=== PATIENT | female | born 1990 | race Caucasian/White ===

== ENCOUNTER → 2017-01-20 | Outpatient (CLI) | payer OTHER ==
[~2017-01-20] MED LIST: HYDR-3713 PO; LEVA750T PO
== END ==
LOC: M OUTALCOH 08:24
PROVIDERS: ATTEND Psychiatry & Neurology Psychiatry
DX: F11.20 Opioid dependence, uncomplicated (principal)

== ENCOUNTER 2017-02-21 11:48 | Emergency (ER) | payer MEDICAID, OTHER, SELFPAY ==
[~2017-02-21] VITALS: Ht 157.5 cm; Wt 83.9 kg
[2017-02-21] MEDS ORDERED: KETOROLAC 30 MG/ML VIAL (J1885) IV ONE (13:15)
[2017-02-21] MEDS ORDERED: ONDANSETRON 4MG/2ML VIAL (J2405) IV ONE (13:15)
[2017-02-21 13:27] LABS: BASO % 0.4 % (0.0-1.0); EOS # 0.1 K/mm3 (0.0-0.50); EOS % 1.2 % (0.0-3.0); LARGE UNSTAINED CELL # 0.1 K/mm3 (0.0-0.4); LARGE UNSTAINED CELL % 1.2 % (0.0-4.0); LYMPH # 1.9 K/mm3 (1.5-6.5); LYMPH % 25.4 % (24.0-44.0); MEAN CORPUSCULAR HEMOGLOBIN 29.6 pg (27.0-33.0); MEAN CORPUSCULAR HGB CONC 32.8 g/dl (32.0-36.5); MEAN CORPUSCULAR VOLUME 90.2 fl (80.0-96.0); MONO # 0.4 K/mm3 (0.0-0.8); MONO % 5.6 % (0.0-5.0); NEUTROPHILS # 4.7 K/mm3 (1.8-7.7); NEUTROPHILS % 66.2 % (36.0-66.0); PLATELET COUNT, AUTOMATED 239 k/mm3 (150-450); RED CELL DISTRIBUTION WIDTH 13.2 % (11.5-14.5); WHITE BLOOD COUNT 7.1 K/mm3 (4.0-10.0)
[2017-02-21 13:54] LABS: ALBUMIN 4.2 GM/DL (3.2-5.2); ALBUMIN/GLOBULIN RATIO 1.24 (1.00-1.93); ALKALINE PHOSPHATASE 56 U/L (45-117); ALT/SGPT 21 U/L (12-78); ANION GAP 3 MEQ/L (8-16); AST/SGOT 25 U/L (15-37); BILIRUBIN,DIRECT 0.1 MG/DL (0.0-0.2); BILIRUBIN,TOTAL 0.5 MG/DL (0.2-1.0); BLOOD UREA NITROGEN 14 MG/DL (7-18); CALCIUM LEVEL 9.4 MG/DL (8.5-10.1); CARBON DIOXIDE LEVEL 31 MEQ/L (21-32); CHLORIDE LEVEL 103 MEQ/L (98-107); CREATININE FOR GFR 0.77 MG/DL (0.55-1.02); GLOMERULAR FILTRATION RATE > 60.0 (>60); GLUCOSE, FASTING 81 MG/DL (70-105); POTASSIUM SERUM 4.1 MEQ/L (3.5-5.1); SODIUM LEVEL 137 MEQ/L (136-145); TOTAL PROTEIN 7.6 GM/DL (6.4-8.2)
--- NOTE | 2017-02-21 14:22 | REP ---
CT ABDOMEN AND PELVIS WITHOUT CONTRAST: CT abdomen and pelvis is performed without oral or IV contrast, with sagittal and coronal reconstruction images. The visualized lung bases demonstrate no infiltrate. The liver, spleen, adrenals, pancreas and kidneys are essentially unremarkable. There is no hydronephrosis. Small gallstones are seen in the gallbladder, which does not appear to be inflamed. There is no abdominal aortic aneurysm. There is no adenopathy. There is no free air. No bowel wall thickening is seen. The appendix is normal. There is no definite pelvic mass. There is mild free fluid in the pelvis, which may be physiologic in nature. No anterior abdominal defect is seen. IMPRESSION: Mild free fluid in the pelvis may be physiologic in nature. No free air. Small gallstones are seen in the gallbladder which does not appear to be inflamed. No renal or ureteral calculus and no hydroureteronephrosis. No evidence of appendicitis. Signed by Kameron Cagle MD 02/21/2017 03:56 P
[2017-02-21] MEDS ORDERED: ZOFR20TA PO (14:41)
[2017-02-21] MEDS ORDERED: NAPR500T PO (14:41)
[2017-02-21 14:58] VITALS: BP 123/64
== END 2017-02-21 15:05 | disposition home or self-care (01) ==
LOC: M ED 13:26
DX: K52.9 Noninfective gastroenteritis and colitis, unspecified (principal)
CPT/HCPCS: 74176; 80048; 80076; 81001; 83690; 85025; 87086; 96374; 96375; 99282; J1885; J2405

== ENCOUNTER 2017-04-11 08:14 | Outpatient (RCR) | payer MEDICAID ==
[~2017-04-11 08:14] MED LIST changes: +NAPR500T PO; +ZOFR20TA PO
== END 2017-04-20 ==
LOC: M OUTALCOH 08:14
PROVIDERS: ATTEND Psychiatry & Neurology Psychiatry
DX: F11.20 Opioid dependence, uncomplicated (principal); F10.20 Alcohol dependence, uncomplicated; F13.10 Sedative, hypnotic or anxiolytic abuse, uncomplicated

== ENCOUNTER → 2017-05-30 | Outpatient (CLI) | payer MEDICAID ==
[~2017-05-30] MED LIST changes: +ACAM0.05; +GABA-282; +IBUP-1022 PO; -LEVA750T PO; +LEVA750T7 PO; +LITH1TAB; +MAGN400T2; +PARO30TA PO; +PRAM0.252 PO; +PRAZ1CAP; +VIVI380I IM; +[UNRECOGNIZED DRUG - CODE]
== END ==
LOC: M OUTALCOH 12:46
PROVIDERS: ATTEND Psychiatry & Neurology Psychiatry
DX: F11.20 Opioid dependence, uncomplicated (principal); F10.20 Alcohol dependence, uncomplicated; F13.10 Sedative, hypnotic or anxiolytic abuse, uncomplicated

== ENCOUNTER 2017-06-14 09:00 | Outpatient (RCR) | payer MEDICAID ==
[~2017-06-14 09:00] MED LIST changes: -ACAM0.05; -GABA-282; -IBUP-1022 PO; -LITH1TAB; -MAGN400T2; -PARO30TA PO; -PRAM0.252 PO; -PRAZ1CAP; -VIVI380I IM; -[UNRECOGNIZED DRUG - CODE]
[2017-06-20] MEDS ORDERED: LITH1TAB (23:15)
[2017-06-20] MEDS ORDERED: GABA-282 (23:15)
[2017-06-20] MEDS ORDERED: PRAZ1CAP (23:15)
[2017-06-20] MEDS ORDERED: [UNRECOGNIZED DRUG - CODE] (23:15)
[2017-06-20] MEDS ORDERED: MAGN400T2 (23:15)
[2017-06-20] MEDS ORDERED: ACAM0.05 (23:15)
[2017-06-20] MEDS ORDERED: PRAM0.252 PO (23:19)
[2017-06-20] MEDS ORDERED: PARO30TA PO (23:19)
[2017-06-20] MEDS ORDERED: VIVI380I IM (23:29)
== END 2017-06-20 ==
LOC: M OUTALCOH 09:00
PROVIDERS: ATTEND Psychiatry & Neurology Psychiatry
DX: F10.20 Alcohol dependence, uncomplicated (principal); F11.20 Opioid dependence, uncomplicated; F13.10 Sedative, hypnotic or anxiolytic abuse, uncomplicated; F17.210 Nicotine dependence, cigarettes, uncomplicated

== ENCOUNTER 2017-06-20 22:51 | Emergency (ER) | payer MEDICAID, OTHER ==
[~2017-06-20] VITALS: Ht 167.6 cm; Wt 73.0 kg
[2017-06-20] MEDS ORDERED: ACAM0.05 (23:15)
[2017-06-20] MEDS ORDERED: LITH1TAB (23:15)
[2017-06-20] MEDS ORDERED: MAGN400T2 (23:15)
[2017-06-20] MEDS ORDERED: PRAZ1CAP (23:15)
[2017-06-20] MEDS ORDERED: GABA-282 (23:15)
[2017-06-20] MEDS ORDERED: [UNRECOGNIZED DRUG - CODE] (23:15)
[2017-06-20] MEDS ORDERED: PRAM0.252 PO (23:19)
[2017-06-20] MEDS ORDERED: PARO30TA PO (23:19)
[2017-06-20] MEDS ORDERED: VIVI380I IM (23:29)
[2017-06-21 00:28] LABS: METHADONE URINE NEGATIVE (NEGATIVE)
[2017-06-21 00:30] LABS: ANION GAP 5 MEQ/L (8-16); BLOOD UREA NITROGEN 6 MG/DL (7-18); CALCIUM LEVEL 8.3 MG/DL (8.5-10.1); CARBON DIOXIDE LEVEL 29 MEQ/L (21-32); CHLORIDE LEVEL 109 MEQ/L (98-107); CREATININE FOR GFR 0.97 MG/DL (0.55-1.02); GLOMERULAR FILTRATION RATE > 60.0 (>60); GLUCOSE, FASTING 104 MG/DL (70-105); POTASSIUM SERUM 3.1 MEQ/L (3.5-5.1); SODIUM LEVEL 143 MEQ/L (136-145)
[2017-06-21 01:56] VITALS: BP 107/55
== END 2017-06-21 02:02 | disposition home or self-care (01) ==
LOC: M ED 22:51 → EDBD 22:51 → M ED 06-21 02:02
DX: F10.129 Alcohol abuse with intoxication, unspecified (principal)

== ENCOUNTER 2017-07-11 11:27 | Emergency (ER) | payer MEDICAID ==
[2017-07-11 11:27] VITALS: BP 129/67
[~2017-07-11 11:27] MED LIST changes: +ACAM0.05; +GABA-282; +LITH1TAB; +MAGN400T2; +PARO30TA PO; +PRAM0.252 PO; +PRAZ1CAP; +VIVI380I IM; +[UNRECOGNIZED DRUG - CODE]
[2017-07-11] MEDS ORDERED: IBUP-1022 PO (11:43)
== END 2017-07-11 13:03 | disposition left against medical advice (07) ==
LOC: M ED 11:27
DX: K08.89 Other specified disorders of teeth and supporting structures (principal); Z53.29 Procedure and treatment not carried out because of patient's decision for other reasons

== ENCOUNTER 2017-07-14 14:00 | Outpatient (RCR) | payer MEDICAID ==
[~2017-07-14 14:00] MED LIST changes: +IBUP-1022 PO
== END 2017-07-21 ==
LOC: M OUTALCOH 14:00
PROVIDERS: ATTEND Psychiatry & Neurology Psychiatry
DX: F11.20 Opioid dependence, uncomplicated (principal); F10.20 Alcohol dependence, uncomplicated; F13.10 Sedative, hypnotic or anxiolytic abuse, uncomplicated; F17.201 Nicotine dependence, unspecified, in remission

== ENCOUNTER 2018-02-18 09:09 | Emergency (ER) | payer OTHER, MEDICAID ==
[2018-02-18 09:45] LABS: KETONE, URINE AUTO RFX NEGATIVE (NEGATIVE); LEUKOCYTE ESTERASE UR AUTO RFX NEGATIVE (NEGATIVE); NITRITE, URINE AUTO RFX NEGATIVE (NEGATIVE); RBC, URINE AUTO RFX 0 /HPF (0-3); SPECIFIC GRAVITY UR AUTO RFX 1.012 (1.002-1.035); SQUAM EPITHELIAL CELL UR AURFX 1 /HPF (0-6); WBC, URINE AUTO RFX 1 /HPF (0-3)
[2018-02-18] MEDS: NS 1,000 ML IV (10:32)
[2018-02-18] MEDS: ONDANSETRON 4MG/2ML VIAL (J2405) IV (10:32)
[2018-02-18] MEDS: MORPHINE 4 MG/ML 1ML VIAL (J2270) IV ×2 (10:33→11:12)
[2018-02-18 10:51] LABS: BASO % 0.6 % (0.0-1.0); EOS # 0.1 10^3/uL (0.0-0.50); HEMATOCRIT 41.4 % (36.0-47.0); HEMOGLOBIN 13.8 g/dl (12.0-15.5); IMMATURE GRANULOCYTE % 0.2 % (0-3.0); LYMPH # 1.5 10^3/uL (1.5-6.5); LYMPH % 23.4 % (24.0-44.0); MEAN CORPUSCULAR HEMOGLOBIN 28.5 pg (27.0-33.0); MEAN CORPUSCULAR HGB CONC 33.3 g/dl (32.0-36.5); MEAN CORPUSCULAR VOLUME 85.5 fl (80.0-96.0); MONO # 0.7 10^3/uL (0.0-0.8); MONO % 11.5 % (0.0-5.0); NEUTROPHILS % 63.3 % (36.0-66.0); PLATELET COUNT, AUTOMATED 240 10^3/uL (150-450); RED BLOOD COUNT 4.84 10^6/uL (4.00-5.40); RED CELL DISTRIBUTION WIDTH 13.2 % (11.5-14.5); WHITE BLOOD COUNT 6.2 10^3/uL (4.0-10.0)
[2018-02-18 10:58] LABS: CONTROL LINE HCG INT CTR LINE PRESENT; HCG, SERUM QUALITATIVE NEGATIVE (NEGATIVE)
[2018-02-18 11:06] LABS: ALBUMIN 4.1 GM/DL (3.2-5.2); ALBUMIN/GLOBULIN RATIO 1.03 (1.00-1.93); ALKALINE PHOSPHATASE 53 U/L (45-117); ALT/SGPT 24 U/L (12-78); ANION GAP 5 MEQ/L (8-16); AST/SGOT 27 U/L (7-37); BILIRUBIN,DIRECT < 0.1 MG/DL (0.0-0.2); BILIRUBIN,TOTAL 0.3 MG/DL (0.2-1.0); BLOOD UREA NITROGEN 12 MG/DL (7-18); CARBON DIOXIDE LEVEL 27 MEQ/L (21-32); CHLORIDE LEVEL 107 MEQ/L (98-107); CREATININE FOR GFR 0.69 MG/DL (0.55-1.30); GLOMERULAR FILTRATION RATE > 60.0 (>60); GLUCOSE, FASTING 87 MG/DL (70-100); LIPASE 176 U/L (73-393); POTASSIUM SERUM 4.2 MEQ/L (3.5-5.1); SODIUM LEVEL 139 MEQ/L (136-145); TOTAL PROTEIN 8.1 GM/DL (6.4-8.2)
[2018-02-18] MEDS ORDERED: ISOVUE-370 76% 100ML VIAL (Q9967) As Ordered (12:39)
[2018-02-18] MEDS: HYDROmorphone HCL 1 MG/ML SYRINGE (J1170) IV (13:08)
[2018-02-18 14:06] LABS: CHLAMYDIA DNA AMPLIFICATION NEGATIVE (NEGATIVE); GC DNA AMPLIFICATION NEGATIVE (NEGATIVE)
== END 2018-02-18 14:18 | disposition home or self-care (01) ==
LOC: M ED 09:09
DX: N83.201 Unspecified ovarian cyst, right side (principal); N75.0 Cyst of Bartholin's gland; F41.9 Anxiety disorder, unspecified; F17.210 Nicotine dependence, cigarettes, uncomplicated
CPT/HCPCS: J1170

== ENCOUNTER 2018-03-11 20:15 | Emergency (ER) | payer SELFPAY, OTHER ==
[2018-03-11] MEDS: LIDOCAINE 1% MDV 20ML VIAL SC (21:30)
[2018-03-11] MEDS: ADACEL/BOOSTRIX VACCINE (DIPHTH/PERTUSS/ACELL/TETANUS)0.5ML SYR (90715) IM (21:37)
[2018-03-11] MEDS: AUGMENTIN 875 MG TAB PO (23:00)
== END 2018-03-11 23:14 | disposition home or self-care (01) ==
LOC: M ED 20:15
DX: S00.83XA Contusion of other part of head, initial encounter (principal); S01.511A Laceration without foreign body of lip, initial encounter; W19.XXXA Unspecified fall, initial encounter; Y92.099 Unspecified place in other non-institutional residence as the place of occurrence of the external cause; Y93.9 Activity, unspecified; Y99.9 Unspecified external cause status; F17.200 Nicotine dependence, unspecified, uncomplicated
CPT/HCPCS: 90715

== ENCOUNTER 2018-05-04 16:56 | Inpatient (IN) | payer SELFPAY ==
[2018-05-04] MEDS ORDERED: GASTROGRAFIN SOLUTION 30ML (Q9963) As Ordered (17:49)
[2018-05-04] MEDS: GASTROGRAFIN SOLUTION 30ML PO ×2 (17:50→18:20)
[2018-05-04] MEDS: NS 1,000 ML IV (17:55)
[2018-05-04 18:08] LABS: BASO # 0.1 10^3/uL (0.0-0.2); BASO % 0.8 % (0.0-1.0); EOS # 0.1 10^3/uL (0.0-0.50); EOS % 2.1 % (0.0-3.0); HEMATOCRIT 39.6 % (36.0-47.0); HEMOGLOBIN 12.8 g/dl (12.0-15.5); IMMATURE GRANULOCYTE % 0.3 % (0-3.0); LYMPH # 1.8 10^3/uL (1.5-6.5); LYMPH % 27.1 % (24.0-44.0); MEAN CORPUSCULAR HEMOGLOBIN 28.8 pg (27.0-33.0); MEAN CORPUSCULAR HGB CONC 32.3 g/dl (32.0-36.5); MEAN CORPUSCULAR VOLUME 89.2 fl (80.0-96.0); MONO # 0.8 10^3/uL (0.0-0.8); MONO % 11.6 % (0.0-5.0); NEUTROPHILS # 3.8 10^3/uL (1.8-7.7); NEUTROPHILS % 58.1 % (36.0-66.0); PLATELET COUNT, AUTOMATED 195 10^3/uL (150-450); RED BLOOD COUNT 4.44 10^6/uL (4.00-5.40); RED CELL DISTRIBUTION WIDTH 14.6 % (11.5-14.5); WHITE BLOOD COUNT 6.6 10^3/uL (4.0-10.0)
[2018-05-04 18:15] LABS: AMORPHOUS SEDIMENT RFX SMALL (NEGATIVE); CALCIUM OXALATE CRYSTALS RFX SMALL; KETONE, URINE AUTO RFX NEGATIVE (NEGATIVE); MUCUS, URINE RFX SMALL (NEGATIVE); NITRITE, URINE AUTO RFX NEGATIVE (NEGATIVE); RBC, URINE AUTO RFX 3 /HPF (0-3); SPECIFIC GRAVITY UR AUTO RFX 1.029 (1.002-1.035); SQUAM EPITHELIAL CELL UR AURFX 29 /HPF (0-6); WBC, URINE AUTO RFX 3 /HPF (0-3)
[2018-05-04 18:16] LABS: LEUKOCYTE ESTERASE UR AUTO RFX 1+ (NEGATIVE)
[2018-05-04 18:31] LABS: AMMONIA 51 uMOL/L (<32)
[2018-05-04 18:35] LABS: LACTIC ACID SEPSIS PROTOCOL 0.9 MMOL/L (0.4-2.0)
[2018-05-04 18:50] LABS: ALBUMIN 3.2 GM/DL (3.2-5.2); ALKALINE PHOSPHATASE 248 U/L (45-117); ALT/SGPT 1643 U/L (12-78); AMYLASE 77 U/L (25-115); ANION GAP 6 MEQ/L (8-16); AST/SGOT 1650 U/L (7-37); BILIRUBIN,DIRECT 6.5 MG/DL (0.0-0.2); BILIRUBIN,TOTAL 8.1 MG/DL (0.2-1.0); BLOOD UREA NITROGEN 7 MG/DL (7-18); CALCIUM LEVEL 8.5 MG/DL (8.5-10.1); CARBON DIOXIDE LEVEL 30 MEQ/L (21-32); CHLORIDE LEVEL 105 MEQ/L (98-107); CREATININE FOR GFR 0.86 MG/DL (0.55-1.30); GAMMA GLUTAMYLTRANSPEPTIDASE 635 U/L (5-55); GLOMERULAR FILTRATION RATE > 60.0 (>60); GLUCOSE, FASTING 85 MG/DL (70-100); LIPASE 190 U/L (73-393); POTASSIUM SERUM 3.8 MEQ/L (3.5-5.1); SODIUM LEVEL 141 MEQ/L (136-145); TOTAL PROTEIN 6.4 GM/DL (6.4-8.2)
[2018-05-04] MEDS ORDERED: ISOVUE-370 76% 100ML VIAL (Q9967) As Ordered (18:57)
[2018-05-04] MEDS: KETOROLAC 30 MG/ML VIAL (J1885) IV (19:00)
[2018-05-04 21:04] LABS: ETHYL ALCOHOL (ETHANOL) 0.009 % (0.000-0.010)
[2018-05-04 21:24] LABS: ACETAMINOPHEN LEVEL < 2.0 UG/ML (10.0-30.0); SALICYLATE LEVEL < 1.7 MG/DL (5.0-30.0)
[2018-05-04] MEDS: traMADol 50 MG TAB PO (21:38)
[2018-05-04] MEDS: D5W/0.9% SODIUM CHLORIDE 1,000 ML IV (22:23)
[2018-05-04] MEDS ORDERED: ACETAMINOPHEN TAB 650MG DOSE (2X325MG) PO (22:30)
[2018-05-04] MEDS: ONDANSETRON 4MG/2ML VIAL (J2405) IV (22:45)
[2018-05-04] MEDS: NICOTINE 14 MG/24 HR TRANSDERMAL TD (22:45)
[2018-05-04] MEDS: PERCOCET 5MG/325MG TAB PO (22:46)
[2018-05-05] MEDS: PERCOCET 5MG/325MG TAB PO (05:00)
[2018-05-05] MEDS: MORPHINE 4 MG/ML 1ML VIAL/SYRINGE (J2270) IV ×3 (07:42→18:11)
[2018-05-05] MEDS: D5W/0.9% SODIUM CHLORIDE 1,000 ML IV ×2 (07:42→21:23)
[2018-05-05] MEDS: ONDANSETRON 4MG/2ML VIAL (J2405) IV ×3 (08:10→21:24)
[2018-05-05 08:34] LABS: BASO % 0.9 % (0.0-1.0); EOS # 0.2 10^3/uL (0.0-0.50); EOS % 4.2 % (0.0-3.0); HEMATOCRIT 38.2 % (36.0-47.0); HEMOGLOBIN 12.3 g/dl (12.0-15.5); IMMATURE GRANULOCYTE % 0.2 % (0-3.0); LYMPH # 1.5 10^3/uL (1.5-6.5); LYMPH % 34.2 % (24.0-44.0); MEAN CORPUSCULAR HEMOGLOBIN 29.1 pg (27.0-33.0); MEAN CORPUSCULAR HGB CONC 32.2 g/dl (32.0-36.5); MEAN CORPUSCULAR VOLUME 90.3 fl (80.0-96.0); MONO # 0.4 10^3/uL (0.0-0.8); MONO % 9.2 % (0.0-5.0); NEUTROPHILS # 2.2 10^3/uL (1.8-7.7); NEUTROPHILS % 51.3 % (36.0-66.0); PLATELET COUNT, AUTOMATED 174 10^3/uL (150-450); RED BLOOD COUNT 4.23 10^6/uL (4.00-5.40); RED CELL DISTRIBUTION WIDTH 14.7 % (11.5-14.5); WHITE BLOOD COUNT 4.3 10^3/uL (4.0-10.0)
[2018-05-05 08:44] LABS: INR 1.07; PROTHROMBIN TIME 14.1 SECONDS (12.4-14.5)
[2018-05-05 09:09] LABS: ALBUMIN 2.8 GM/DL (3.2-5.2); ALBUMIN/GLOBULIN RATIO 1.04 (1.00-1.93); ALKALINE PHOSPHATASE 221 U/L (45-117); ALT/SGPT 1367 U/L (12-78); ANION GAP 8 MEQ/L (8-16); AST/SGOT 1374 U/L (7-37); BILIRUBIN,TOTAL 9.6 MG/DL (0.2-1.0); BLOOD UREA NITROGEN 5 MG/DL (7-18); CARBON DIOXIDE LEVEL 27 MEQ/L (21-32); CHLORIDE LEVEL 109 MEQ/L (98-107); CREATININE FOR GFR 0.81 MG/DL (0.55-1.30); GLOMERULAR FILTRATION RATE > 60.0 (>60); GLUCOSE, FASTING 98 MG/DL (70-100); POTASSIUM SERUM 3.9 MEQ/L (3.5-5.1); SODIUM LEVEL 144 MEQ/L (136-145); TOTAL PROTEIN 5.5 GM/DL (6.4-8.2)
[2018-05-05] MEDS: NICOTINE 14 MG/24 HR TRANSDERMAL TD (11:10)
[2018-05-05 11:47] LABS: HIV 1&2 SCREEN CENTAUR NEGATIVE (NEGATIVE)
[2018-05-05 13:35] LABS: HEPATITIS B SURFACE ANTIGEN NEGATIVE (NEGATIVE)
[2018-05-05 14:03] LABS: HEPATITIS B CORE ANTIBODY IGM NEGATIVE (NEGATIVE)
[2018-05-05 14:05] LABS: HEPATITIS A ANTIBODY IGM NEGATIVE (NEGATIVE)
[2018-05-05] MEDS: KETOROLAC 30 MG/ML VIAL (J1885) IV ×2 (14:07→21:24)
[2018-05-05 14:17] LABS: HEPATITIS C VIRUS ABY INDEX 10.2 INDEX (<0.8)
[2018-05-06] MEDS: KETOROLAC 30 MG/ML VIAL (J1885) IV (05:40)
[2018-05-06] MEDS: ONDANSETRON 4MG/2ML VIAL (J2405) IV ×3 (05:40→19:41)
[2018-05-06] MEDS: D5W/0.9% SODIUM CHLORIDE 1,000 ML IV (05:41)
[2018-05-06 08:43] LABS: BASO % 0.9 % (0.0-1.0); EOS # 0.2 10^3/uL (0.0-0.50); EOS % 3.4 % (0.0-3.0); HEMATOCRIT 35.6 % (36.0-47.0); HEMOGLOBIN 11.5 g/dl (12.0-15.5); IMMATURE GRANULOCYTE % 0.2 % (0-3.0); LYMPH # 1.1 10^3/uL (1.5-6.5); LYMPH % 25.5 % (24.0-44.0); MEAN CORPUSCULAR HGB CONC 32.3 g/dl (32.0-36.5); MEAN CORPUSCULAR VOLUME 89.7 fl (80.0-96.0); MONO # 0.4 10^3/uL (0.0-0.8); MONO % 8.7 % (0.0-5.0); NEUTROPHILS # 2.7 10^3/uL (1.8-7.7); NEUTROPHILS % 61.3 % (36.0-66.0); PLATELET COUNT, AUTOMATED 140 10^3/uL (150-450); RED BLOOD COUNT 3.97 10^6/uL (4.00-5.40); RED CELL DISTRIBUTION WIDTH 14.8 % (11.5-14.5); WHITE BLOOD COUNT 4.4 10^3/uL (4.0-10.0)
[2018-05-06] MEDS: NICOTINE 14 MG/24 HR TRANSDERMAL TD (08:49)
[2018-05-06] MEDS: MORPHINE 4 MG/ML 1ML VIAL/SYRINGE (J2270) IV ×5 (08:49→23:59)
[2018-05-06 09:23] LABS: ALBUMIN 2.5 GM/DL (3.2-5.2); ALBUMIN/GLOBULIN RATIO 1.09 (1.00-1.93); ALKALINE PHOSPHATASE 183 U/L (45-117); ALT/SGPT 1096 U/L (12-78); ANION GAP 7 MEQ/L (8-16); AST/SGOT 1152 U/L (7-37); BILIRUBIN,TOTAL 10.6 MG/DL (0.2-1.0); BLOOD UREA NITROGEN 5 MG/DL (7-18); CARBON DIOXIDE LEVEL 28 MEQ/L (21-32); CHLORIDE LEVEL 111 MEQ/L (98-107); CREATININE FOR GFR 0.79 MG/DL (0.55-1.30); GLOMERULAR FILTRATION RATE > 60.0 (>60); GLUCOSE, FASTING 105 MG/DL (70-100); POTASSIUM SERUM 4.1 MEQ/L (3.5-5.1); SODIUM LEVEL 146 MEQ/L (136-145); TOTAL PROTEIN 4.8 GM/DL (6.4-8.2)
[2018-05-06] MEDS: THIAMINE 100 MG TAB PO (17:11)
[2018-05-06] MEDS: FOLIC ACID 1 MG TAB PO (17:11)
[2018-05-07 00:06] LABS: ANTI-SMOOTH MUSCLE ANTIBODY 4 Units (0-19)
[2018-05-07] MEDS: KETOROLAC 30 MG/ML VIAL (J1885) IV (00:10)
[2018-05-07] MEDS: MORPHINE 4 MG/ML 1ML VIAL/SYRINGE (J2270) IV ×4 (05:56→22:01)
[2018-05-07] MEDS: ONDANSETRON 4MG/2ML VIAL (J2405) IV ×3 (05:56→17:56)
[2018-05-07 06:13] LABS: BASO % 0.9 % (0.0-1.0); EOS # 0.1 10^3/uL (0.0-0.50); EOS % 2.5 % (0.0-3.0); HEMATOCRIT 35.4 % (36.0-47.0); HEMOGLOBIN 11.6 g/dl (12.0-15.5); IMMATURE GRANULOCYTE % 0.2 % (0-3.0); LYMPH # 1.4 10^3/uL (1.5-6.5); LYMPH % 31.4 % (24.0-44.0); MEAN CORPUSCULAR HEMOGLOBIN 28.9 pg (27.0-33.0); MEAN CORPUSCULAR HGB CONC 32.8 g/dl (32.0-36.5); MEAN CORPUSCULAR VOLUME 88.3 fl (80.0-96.0); MONO # 0.3 10^3/uL (0.0-0.8); MONO % 7.6 % (0.0-5.0); NEUTROPHILS # 2.6 10^3/uL (1.8-7.7); NEUTROPHILS % 57.4 % (36.0-66.0); PLATELET COUNT, AUTOMATED 159 10^3/uL (150-450); RED BLOOD COUNT 4.01 10^6/uL (4.00-5.40); RED CELL DISTRIBUTION WIDTH 14.8 % (11.5-14.5); WHITE BLOOD COUNT 4.5 10^3/uL (4.0-10.0)
[2018-05-07 07:00] LABS: ALBUMIN 2.5 GM/DL (3.2-5.2); ALBUMIN/GLOBULIN RATIO 0.96 (1.00-1.93); ALKALINE PHOSPHATASE 192 U/L (45-117); ALT/SGPT 1050 U/L (12-78); ANION GAP 8 MEQ/L (8-16); AST/SGOT 1218 U/L (7-37); BILIRUBIN,TOTAL 12.3 MG/DL (0.2-1.0); BLOOD UREA NITROGEN 5 MG/DL (7-18); CALCIUM LEVEL 8.4 MG/DL (8.5-10.1); CARBON DIOXIDE LEVEL 29 MEQ/L (21-32); CHLORIDE LEVEL 108 MEQ/L (98-107); GLOMERULAR FILTRATION RATE > 60.0 (>60); GLUCOSE, FASTING 84 MG/DL (70-100); POTASSIUM SERUM 3.8 MEQ/L (3.5-5.1); SODIUM LEVEL 145 MEQ/L (136-145); TOTAL PROTEIN 5.1 GM/DL (6.4-8.2)
[2018-05-07 07:19] LABS: INR 1.14; PROTHROMBIN TIME 14.8 SECONDS (12.4-14.5)
[2018-05-07] MEDS: THIAMINE 100 MG TAB PO (08:33)
[2018-05-07] MEDS: FOLIC ACID 1 MG TAB PO (08:33)
[2018-05-07] MEDS: NICOTINE 14 MG/24 HR TRANSDERMAL TD (08:33)
[2018-05-08] MEDS: ONDANSETRON 4MG/2ML VIAL (J2405) IV (00:05)
[2018-05-08 06:55] LABS: CONTROL LINE MONO EB INT CTR LINE PRESENT; MONO REFLEX EBV VCA IgM NEGATIVE (NEGATIVE)
[2018-05-08 07:17] LABS: BASO % 0.8 % (0.0-1.0); EOS # 0.2 10^3/uL (0.0-0.50); EOS % 3.2 % (0.0-3.0); HEMATOCRIT 35.4 % (36.0-47.0); HEMOGLOBIN 11.7 g/dl (12.0-15.5); IMMATURE GRANULOCYTE % 0.4 % (0-3.0); LYMPH # 1.4 10^3/uL (1.5-6.5); LYMPH % 28.3 % (24.0-44.0); MEAN CORPUSCULAR HEMOGLOBIN 28.7 pg (27.0-33.0); MEAN CORPUSCULAR HGB CONC 33.1 g/dl (32.0-36.5); MONO # 0.6 10^3/uL (0.0-0.8); MONO % 11.2 % (0.0-5.0); NEUTROPHILS # 2.8 10^3/uL (1.8-7.7); NEUTROPHILS % 56.1 % (36.0-66.0); PLATELET COUNT, AUTOMATED 176 10^3/uL (150-450); RED BLOOD COUNT 4.07 10^6/uL (4.00-5.40)
[2018-05-08 07:42] LABS: ALBUMIN 2.6 GM/DL (3.2-5.2); ALBUMIN/GLOBULIN RATIO 0.87 (1.00-1.93); ALKALINE PHOSPHATASE 187 U/L (45-117); ALT/SGPT 984 U/L (12-78); ANION GAP 7 MEQ/L (8-16); AST/SGOT 1257 U/L (7-37); BILIRUBIN,TOTAL 13.3 MG/DL (0.2-1.0); BLOOD UREA NITROGEN 5 MG/DL (7-18); CALCIUM LEVEL 8.6 MG/DL (8.5-10.1); CARBON DIOXIDE LEVEL 29 MEQ/L (21-32); CHLORIDE LEVEL 106 MEQ/L (98-107); CREATININE FOR GFR 0.87 MG/DL (0.55-1.30); GLOMERULAR FILTRATION RATE > 60.0 (>60); GLUCOSE, FASTING 85 MG/DL (70-100); POTASSIUM SERUM 3.7 MEQ/L (3.5-5.1); SODIUM LEVEL 142 MEQ/L (136-145); TOTAL PROTEIN 5.6 GM/DL (6.4-8.2)
[2018-05-08] MEDS: LACTULOSE 20 GM/30 ML SYRUP UD PO ×3 (08:58→20:44)
[2018-05-08] MEDS: MORPHINE 4 MG/ML 1ML VIAL/SYRINGE (J2270) IV (08:58)
[2018-05-08] MEDS: NICOTINE 14 MG/24 HR TRANSDERMAL TD (08:59)
[2018-05-08] MEDS: FOLIC ACID 1 MG TAB PO (08:59)
[2018-05-08] MEDS: THIAMINE 100 MG TAB PO (08:59)
[2018-05-08] MEDS: MULTIVITAMINS/MINERALS THERAP 1 TAB PO (08:59)
[2018-05-08] MEDS: IBUPROFEN 400 MG TAB PO ×2 (14:05→20:43)
[2018-05-08 14:29] LABS: HCV RNA NAA QUALITATIVE Positive (Negative)
[2018-05-08] MEDS: oxyCODONE 5MG TAB PO (20:54)
[2018-05-08] MEDS: ONDANSETRON 4 MG TAB (S0181) PO (20:54)
[2018-05-09 06:43] LABS: BASO # 0.1 10^3/uL (0.0-0.2); EOS # 0.2 10^3/uL (0.0-0.50); EOS % 3.5 % (0.0-3.0); HEMATOCRIT 34.7 % (36.0-47.0); HEMOGLOBIN 11.6 g/dl (12.0-15.5); IMMATURE GRANULOCYTE % 0.4 % (0-3.0); LYMPH # 1.8 10^3/uL (1.5-6.5); MEAN CORPUSCULAR HEMOGLOBIN 28.9 pg (27.0-33.0); MEAN CORPUSCULAR HGB CONC 33.4 g/dl (32.0-36.5); MEAN CORPUSCULAR VOLUME 86.5 fl (80.0-96.0); MONO # 0.6 10^3/uL (0.0-0.8); MONO % 12.4 % (0.0-5.0); NEUTROPHILS # 2.3 10^3/uL (1.8-7.7); NEUTROPHILS % 45.7 % (36.0-66.0); PLATELET COUNT, AUTOMATED 178 10^3/uL (150-450); RED BLOOD COUNT 4.01 10^6/uL (4.00-5.40); RED CELL DISTRIBUTION WIDTH 15.5 % (11.5-14.5); WHITE BLOOD COUNT 4.9 10^3/uL (4.0-10.0)
[2018-05-09 06:53] LABS: INR 1.07
[2018-05-09 07:18] LABS: ALBUMIN 2.5 GM/DL (3.2-5.2); ALBUMIN/GLOBULIN RATIO 0.81 (1.00-1.93); ALKALINE PHOSPHATASE 177 U/L (45-117); ALT/SGPT 821 U/L (12-78); ANION GAP 9 MEQ/L (8-16); AST/SGOT 858 U/L (7-37); BLOOD UREA NITROGEN 4 MG/DL (7-18); CALCIUM LEVEL 8.6 MG/DL (8.5-10.1); CARBON DIOXIDE LEVEL 28 MEQ/L (21-32); CHLORIDE LEVEL 106 MEQ/L (98-107); CREATININE FOR GFR 0.86 MG/DL (0.55-1.30); GLOMERULAR FILTRATION RATE > 60.0 (>60); GLUCOSE, FASTING 87 MG/DL (70-100); POTASSIUM SERUM 3.8 MEQ/L (3.5-5.1); SODIUM LEVEL 143 MEQ/L (136-145); TOTAL PROTEIN 5.6 GM/DL (6.4-8.2)
[2018-05-09] MEDS: IBUPROFEN 400 MG TAB PO (11:05)
[2018-05-09] MEDS: MULTIVITAMINS/MINERALS THERAP 1 TAB PO (11:05)
[2018-05-09] MEDS: THIAMINE 100 MG TAB PO (11:05)
[2018-05-09] MEDS: FOLIC ACID 1 MG TAB PO (11:05)
[2018-05-09] MEDS: LACTULOSE 20 GM/30 ML SYRUP UD PO (11:06)
[2018-05-09] MEDS: NICOTINE 14 MG/24 HR TRANSDERMAL TD (11:08)
[2018-05-10 00:06] LABS: ANTI-MITOCHONDRIAL ANTIBODY 2.8 Units (0.0-20.0); ANTINUCLEAR ANTIBODIES DIRECT Negative (Negative); SOLUBLE LIVER ANTIGEN IgG ABY 1.5 units (0.0-20.0)
[2018-05-10 00:06] LABS: ANTI-SMOOTH MUSCLE ANTIBODY 5 Units (0-19)
[2018-05-11 00:07] LABS: CYTOMEGALOVIRUS IgM ANTIBODY <30.0 AU/mL (0.0-29.9); HEPATITIS E IgM ANTIBODY Negative (Negative); HSV TYPE I IgM AB <1:10 titer (<1:10); HSV TYPE II IgM ABY <1:10 titer (<1:10)
== END 2018-05-09 11:52 | disposition home or self-care (01) | DRG 279 ==
LOC: M MSPAV 05-05 17:22 → M ED 16:56 → M ED INP 22:23
DX: B18.2 Chronic viral hepatitis C (principal); K83.1 Obstruction of bile duct; R17 Unspecified jaundice; F17.210 Nicotine dependence, cigarettes, uncomplicated; F10.20 Alcohol dependence, uncomplicated; R01.1 Cardiac murmur, unspecified

== ENCOUNTER 2018-07-01 23:17 | Emergency (ER) | payer OTHER, MEDICAID | END 2018-07-01 23:36 | disposition left against medical advice (07) | LOC: M ED 23:17 | DX: F10.129 Alcohol abuse with intoxication, unspecified (principal); Z53.21 Procedure and treatment not carried out due to patient leaving prior to being seen by health care provider ==

== ENCOUNTER → 2018-11-16 | Outpatient (CLI) | payer MEDICAID ==
[~2018-11-16] MED LIST changes: +AUGM875T28 PO; +BACT800T5 PO; +BUPR50TA; +DICL75TA PO; -GABA-282; +GABA-843; +LACT10SO3 PO; +NAPR-50 PO; -NAPR500T PO; +NICO14PA TD; +ONDA4TAB6 PO; -PRAM0.252 PO; +PRAM0.255 PO; +PROAAER10 INH; +SUBO8MIS; +TRAZ-160; +ZITHTAB PO; -ZOFR20TA PO; +ZOFR4TAB16 PO
== END ==
LOC: M OUTALCOH 07:49
PROVIDERS: ATTEND Psychiatry & Neurology Psychiatry
DX: Z13.89 Encounter for screening for other disorder (principal); F11.20 Opioid dependence, uncomplicated

== ENCOUNTER 2018-11-27 11:54 | Emergency (ER) | payer MEDICAID ==
[~2018-11-27] VITALS: Ht 157.5 cm; Wt 92.3 kg
[~2018-11-27 11:54] MED LIST changes: -BUPR50TA; -PROAAER10 INH; -SUBO8MIS; -TRAZ-160; -ZITHTAB PO
[2018-11-27] MEDS ORDERED: SUBO8MIS (12:02)
[2018-11-27] MEDS ORDERED: GABA-843 (12:02)
[2018-11-27] MEDS ORDERED: TRAZ-160 (12:02)
[2018-11-27] MEDS ORDERED: BUPR50TA (12:02)
[2018-11-27] MEDS ORDERED: ACETAMINOPHEN 325 MG TAB PO ONE (12:30)
[2018-11-27] MEDS ORDERED: IPRATROPIUM 0.5MG/ALBUTEROL 2.5MG INH SOL UD 3ML (DUONEB)(J7620) NEB PRN (12:30)
[2018-11-27] MEDS ORDERED: IBUPROFEN 600 MG TAB PO ONE (12:30)
[2018-11-27 13:17] LABS: BASO % 0.2 % (0.0-1.0); EOS % 0.2 % (0.0-3.0); HEMATOCRIT 41.3 % (36.0-47.0); HEMOGLOBIN 13.5 g/dl (12.0-15.5); LYMPH # 0.7 10^3/uL (1.5-4.5); LYMPH % 5.9 % (24.0-44.0); MEAN CORPUSCULAR HGB CONC 32.7 g/dl (32.0-36.5); MEAN CORPUSCULAR VOLUME 85.7 fl (80.0-96.0); MONO # 0.4 10^3/uL (0.0-0.8); MONO % 3.7 % (0.0-5.0); NEUTROPHILS # 10.4 10^3/uL (1.8-7.7); NEUTROPHILS % 89.8 % (36.0-66.0); PLATELET COUNT, AUTOMATED 187 10^3/uL (150-450); RED BLOOD COUNT 4.82 10^6/uL (4.00-5.40); WHITE BLOOD COUNT 11.5 10^3/uL (4.0-10.0)
--- NOTE | 2018-11-27 13:23 | REP ---
Chest x-ray: Two views. History: Dyspnea and cough. Findings: The lungs are symmetrically aerated and free of infiltrate. Pleural angles are sharp. Heart size is normal. Pulmonary vasculature is not increased. No significant bony abnormality is seen. Impression: No active disease. Electronically Signed by Taran Saha MD 11/27/2018 01:14 P
[2018-11-27 13:39] LABS: BLOOD UREA NITROGEN 8 MG/DL (7-18); CALCIUM LEVEL 8.9 MG/DL (8.5-10.1); CARBON DIOXIDE LEVEL 27 MEQ/L (21-32); CHLORIDE LEVEL 106 MEQ/L (98-107); CREATININE FOR GFR 0.69 MG/DL (0.55-1.30); GLOMERULAR FILTRATION RATE > 60.0 (>60); GLUCOSE, FASTING 96 MG/DL (70-100); POTASSIUM SERUM 3.8 MEQ/L (3.5-5.1); SODIUM LEVEL 140 MEQ/L (136-145)
[2018-11-27 13:47] LABS: INFLUENZA A AMPLIFICATION NEGATIVE (NEGATIVE); INFLUENZA B AMPLIFICATION NEGATIVE (NEGATIVE)
[2018-11-27] MEDS ORDERED: ISOVUE-370 76% 100ML VIAL (Q9967) As Ordered ONE (14:05)
[2018-11-27] MEDS ORDERED: ZITHTAB PO (14:43)
[2018-11-27] MEDS ORDERED: PROAAER10 INH (14:43)
[2018-11-27] MEDS ORDERED: cefTRIAXone SOD 1 GM in D5W MINI-BAG PLUS 50 ML IV ONE (14:45)
--- NOTE | 2018-11-27 14:45 | REP ---
CT pulmonary angiogram: With IV contrast. History: Chest pressure. Cough. Comparison studies: No comparison chest CT. Contrast dose: 75 mL of Isovue [address] technique: Helical scanning is acquired and overlapping 1.5 mm and contiguous 3 mm axial images are reformatted. In addition, maximum intensity projection and multiplanar re-formation images are generated in sagittal and coronal imaging projections. CT pulmonary angiographic findings: There is good opacification of the pulmonary arterial tree. There is no CT evidence of pulmonary embolus. Thoracic aorta shows no evidence of aneurysm or dissection. There is some residual thymic tissue in the anterior mediastinum. No mass or adenopathy is appreciated. There is a patchy infiltrate pattern in the left upper lobe with some areas of density in the left lower lobe. No pleural or pericardial effusion is seen. No adrenal lesion is observed. Visualized upper abdominal structures are unremarkable. No bony destructive lesion is seen. Impression: Left upper lobe and to some degree left lower lobe consolidation consistent with pneumonia. There is no CT evidence of pulmonary embolus or thoracic aneurysm or dissection. Electronically Signed by Taran Saha MD 11/27/2018 07:29 P
[2018-11-27 14:52] VITALS: BP 109/52
== END 2018-11-27 15:21 | disposition home or self-care (01) ==
LOC: M ED 11:54
DX: J18.9 Pneumonia, unspecified organism (principal); F41.9 Anxiety disorder, unspecified; K21.9 Gastro-esophageal reflux disease without esophagitis; F17.210 Nicotine dependence, cigarettes, uncomplicated
CPT/HCPCS: 71046; 71275; 80048; 85025; 85379; 87502; 87880; 94640; 96374; 99284; J0696; Q9967

== ENCOUNTER 2018-12-19 10:00 | Outpatient (RCR) | payer MEDICAID ==
[~2018-12-19 10:00] MED LIST changes: +BUPR50TA; +PROAAER10 INH; +SUBO8MIS; +TRAZ-160; +ZITHTAB PO
== END 2018-12-21 ==
LOC: M OUTALCOH 10:00
PROVIDERS: ATTEND Psychiatry & Neurology Psychiatry
DX: F11.20 Opioid dependence, uncomplicated (principal); F10.20 Alcohol dependence, uncomplicated; F13.10 Sedative, hypnotic or anxiolytic abuse, uncomplicated; F17.200 Nicotine dependence, unspecified, uncomplicated

== ENCOUNTER → 2019-01-03 | Outpatient (REF) | payer MEDICAID ==
[2019-01-03 18:40] LABS: BASO % 0.2 % (0.0-1.0); EOS % 0.7 % (0.0-3.0); HEMATOCRIT 41.5 % (36.0-47.0); HEMOGLOBIN 13.6 g/dl (12.0-15.5); LYMPH # 1.7 10^3/uL (1.5-4.5); LYMPH % 40.7 % (24.0-44.0); MEAN CORPUSCULAR HEMOGLOBIN 27.6 pg (27.0-33.0); MEAN CORPUSCULAR HGB CONC 32.8 g/dl (32.0-36.5); MEAN CORPUSCULAR VOLUME 84.3 fl (80.0-96.0); MONO # 0.4 10^3/uL (0.0-0.8); MONO % 8.9 % (0.0-5.0); NEUTROPHILS # 2.1 10^3/uL (1.8-7.7); NEUTROPHILS % 49.3 % (36.0-66.0); PLATELET COUNT, AUTOMATED 220 10^3/uL (150-450); RED BLOOD COUNT 4.92 10^6/uL (4.00-5.40); WHITE BLOOD COUNT 4.3 10^3/uL (4.0-10.0)
[2019-01-03 18:46] LABS: ALBUMIN 3.8 GM/DL (3.2-5.2); ALT/SGPT 22 U/L (12-78); BILIRUBIN,TOTAL 0.3 MG/DL (0.2-1.0); BLOOD UREA NITROGEN 10 MG/DL (7-18); CARBON DIOXIDE LEVEL 28 MEQ/L (21-32); CHLORIDE LEVEL 106 MEQ/L (98-107); CREATININE FOR GFR 0.69 MG/DL (0.55-1.30); GLOMERULAR FILTRATION RATE > 60.0 (>60); GLUCOSE, FASTING 109 MG/DL (70-100); POTASSIUM SERUM 3.9 MEQ/L (3.5-5.1); SODIUM LEVEL 140 MEQ/L (136-145); TOTAL PROTEIN 6.9 GM/DL (6.4-8.2)
[2019-01-03 19:00] LABS: HEPATITIS B SURFACE ANTIBODY NEGATIVE (POSITIVE)
[2019-01-03 19:11] LABS: HEPATITIS B SURFACE ANTIGEN NEGATIVE (NEGATIVE)
[2019-01-05 13:36] LABS: HEPATITIS C VIRUS ABY INDEX > 11.0 INDEX (<0.8)
[2019-01-08 14:46] LABS: HEPATITIS C QUANTITATION HCV Not Detected IU/mL (.)
== END ==
LOC: M LAB REF 16:28
PROVIDERS: ATTEND Family Medicine Addiction Medicine
DX: B18.2 Chronic viral hepatitis C (principal)

== ENCOUNTER 2019-01-16 10:00 | Outpatient (RCR) | payer MEDICAID | END 2019-01-18 | LOC: M OUTALCOH 10:00 | PROVIDERS: ATTEND Psychiatry & Neurology Psychiatry | DX: F11.20 Opioid dependence, uncomplicated (principal); F10.20 Alcohol dependence, uncomplicated; F13.10 Sedative, hypnotic or anxiolytic abuse, uncomplicated; F17.200 Nicotine dependence, unspecified, uncomplicated ==

== ENCOUNTER 2019-02-16 13:00 | Outpatient (RCR) | payer MEDICAID | END 2019-02-18 | LOC: M OUTALCOH 13:00 | PROVIDERS: ATTEND Psychiatry & Neurology Psychiatry | DX: F11.20 Opioid dependence, uncomplicated (principal); F10.20 Alcohol dependence, uncomplicated; F13.10 Sedative, hypnotic or anxiolytic abuse, uncomplicated; F17.200 Nicotine dependence, unspecified, uncomplicated ==

== ENCOUNTER → 2019-03-06 | Outpatient (REF) | payer MEDICAID ==
[~2019-03-06] MED LIST changes: -NAPR-50 PO; +NAPR-837 PO
[2019-03-06 20:28] LABS: CHLAMYDIA DNA AMPLIFICATION NEGATIVE (NEGATIVE); GC DNA AMPLIFICATION POSITIVE (NEGATIVE)
== END ==
LOC: M LAB REF 17:20
PROVIDERS: ATTEND Family Medicine Addiction Medicine
DX: Z12.4 Encounter for screening for malignant neoplasm of cervix (principal); B18.2 Chronic viral hepatitis C; R87.615 Unsatisfactory cytologic smear of cervix

== ENCOUNTER 2019-03-14 16:00 | Outpatient (RCR) | payer MEDICAID | END 2019-03-20 | LOC: M OUTALCOH 16:00 | PROVIDERS: ATTEND Psychiatry & Neurology Psychiatry | DX: F11.20 Opioid dependence, uncomplicated (principal); F10.20 Alcohol dependence, uncomplicated; F13.10 Sedative, hypnotic or anxiolytic abuse, uncomplicated; F17.200 Nicotine dependence, unspecified, uncomplicated; F12.10 Cannabis abuse, uncomplicated ==

== ENCOUNTER → 2019-03-21 | Outpatient (REF) | payer MEDICAID ==
[2019-03-21 20:32] LABS: CHLAMYDIA DNA AMPLIFICATION NEGATIVE (NEGATIVE); GC DNA AMPLIFICATION NEGATIVE (NEGATIVE)
== END ==
LOC: M LAB REF 16:27
PROVIDERS: ATTEND Family Medicine Addiction Medicine
DX: A54.03 Gonococcal cervicitis, unspecified (principal)

== ENCOUNTER 2019-04-18 14:57 | Outpatient (RCR) | payer MEDICAID | END 2019-04-20 | LOC: M OUTALCOH 14:57 | PROVIDERS: ATTEND Psychiatry & Neurology Psychiatry | DX: F11.20 Opioid dependence, uncomplicated (principal); F10.20 Alcohol dependence, uncomplicated; F13.10 Sedative, hypnotic or anxiolytic abuse, uncomplicated; F17.200 Nicotine dependence, unspecified, uncomplicated; F12.10 Cannabis abuse, uncomplicated ==

== ENCOUNTER 2019-05-14 14:00 | Outpatient (RCR) | payer MEDICAID ==
[~2019-05-14 14:00] MED LIST changes: -TRAZ-160; +TRAZ-252
== END 2019-05-20 ==
LOC: M OUTALCOH 14:00
PROVIDERS: ATTEND Psychiatry & Neurology Psychiatry
DX: F11.20 Opioid dependence, uncomplicated (principal); F10.20 Alcohol dependence, uncomplicated; F13.10 Sedative, hypnotic or anxiolytic abuse, uncomplicated; F17.200 Nicotine dependence, unspecified, uncomplicated

== ENCOUNTER 2019-06-18 16:00 | Outpatient (RCR) | payer MEDICAID | END 2019-06-20 | LOC: M OUTALCOH 16:00 | PROVIDERS: ATTEND Psychiatry & Neurology Psychiatry | DX: F10.20 Alcohol dependence, uncomplicated (principal); F11.20 Opioid dependence, uncomplicated; F12.10 Cannabis abuse, uncomplicated ==

== ENCOUNTER 2019-07-04 15:30 | Outpatient (RCR) | payer MEDICAID | END 2019-07-21 | LOC: M OUTALCOH 15:30 | PROVIDERS: ATTEND Psychiatry & Neurology Psychiatry | DX: F11.20 Opioid dependence, uncomplicated (principal); F10.20 Alcohol dependence, uncomplicated; F12.10 Cannabis abuse, uncomplicated ==

== ENCOUNTER → 2019-08-20 | Outpatient (RCR) | payer MEDICAID | LOC: M OUTALCOH 07-24 14:14 | PROVIDERS: ATTEND Psychiatry & Neurology Psychiatry | DX: F11.20 Opioid dependence, uncomplicated (principal); F10.20 Alcohol dependence, uncomplicated; F12.10 Cannabis abuse, uncomplicated ==

== ENCOUNTER → 2019-09-20 | Outpatient (RCR) | payer MEDICAID | LOC: M OUTALCOH 08-23 16:00 | PROVIDERS: ATTEND Psychiatry & Neurology Psychiatry | DX: F11.20 Opioid dependence, uncomplicated (principal); F10.20 Alcohol dependence, uncomplicated; F13.10 Sedative, hypnotic or anxiolytic abuse, uncomplicated; F17.200 Nicotine dependence, unspecified, uncomplicated; F12.10 Cannabis abuse, uncomplicated ==

== ENCOUNTER → 2019-10-09 | Outpatient (REF) | payer MEDICAID ==
[2019-10-09 19:39] LABS: HCG, SERUM QUALITATIVE NEGATIVE (NEGATIVE)
[2019-10-09 19:55] LABS: ALBUMIN 4.1 GM/DL (3.2-5.2); ALT/SGPT 22 U/L (12-78); BILIRUBIN,TOTAL 0.6 MG/DL (0.2-1.0); BLOOD UREA NITROGEN 7 MG/DL (7-18); CALCIUM LEVEL 9.8 MG/DL (8.5-10.1); CARBON DIOXIDE LEVEL 28 MEQ/L (21-32); CHLORIDE LEVEL 109 MEQ/L (98-107); CREATININE FOR GFR 0.73 MG/DL (0.55-1.30); FREE T4 0.99 NG/DL (0.76-1.46); GLOMERULAR FILTRATION RATE > 60.0 (>60); GLUCOSE, FASTING 95 MG/DL (70-100); POTASSIUM SERUM 3.5 MEQ/L (3.5-5.1); SODIUM LEVEL 142 MEQ/L (136-145); TOTAL PROTEIN 7.3 GM/DL (6.4-8.2)
[2019-10-09 20:26] LABS: HEMOGLOBIN A1c 5.2 %
== END ==
LOC: M LAB REF 18:55
PROVIDERS: ATTEND Nurse Practitioner Adult Health
DX: R63.4 Abnormal weight loss (principal)

== ENCOUNTER 2019-11-01 16:00 | Outpatient (RCR) | payer MEDICAID | END 2019-11-20 | LOC: M OUTALCOH 16:00 | PROVIDERS: ATTEND Psychiatry & Neurology Psychiatry | DX: F11.20 Opioid dependence, uncomplicated (principal); F10.20 Alcohol dependence, uncomplicated; F12.10 Cannabis abuse, uncomplicated ==

== ENCOUNTER 2019-12-18 13:00 | Outpatient (RCR) | payer MEDICAID | END 2019-12-21 | LOC: M OUTALCOH 13:00 | PROVIDERS: ATTEND Psychiatry & Neurology Psychiatry | DX: F11.20 Opioid dependence, uncomplicated (principal); F10.20 Alcohol dependence, uncomplicated; F12.10 Cannabis abuse, uncomplicated ==

== ENCOUNTER → 2020-03-13 | Outpatient (CLI) | payer MEDICAID | LOC: M OUTALCOH 08:24 | PROVIDERS: ATTEND Psychiatry & Neurology Addiction Medicine | DX: F12.20 Cannabis dependence, uncomplicated (principal) ==

== ENCOUNTER 2020-03-18 13:11 | Outpatient (RCR) | payer MEDICAID | END 2020-03-20 | LOC: M OUTALCOH 13:11 | PROVIDERS: ATTEND Psychiatry & Neurology Addiction Medicine | DX: F11.20 Opioid dependence, uncomplicated (principal); F10.20 Alcohol dependence, uncomplicated; F12.20 Cannabis dependence, uncomplicated; Z72.0 Tobacco use ==

== ENCOUNTER 2020-04-15 10:00 | Outpatient (RCR) | payer MEDICAID ==
[~2020-04-15 10:00] MED LIST changes: -PARO30TA PO; +PARO30TA65 PO
== END 2020-04-20 ==
LOC: M OUTALCOH 10:00
PROVIDERS: ATTEND Psychiatry & Neurology Addiction Medicine
DX: F12.20 Cannabis dependence, uncomplicated (principal); Z72.0 Tobacco use

== ENCOUNTER → 2020-05-20 | Outpatient (RCR) | payer MEDICAID | LOC: M OUTALCOH 04-22 15:01 | PROVIDERS: ATTEND Psychiatry & Neurology Addiction Medicine | DX: F12.20 Cannabis dependence, uncomplicated (principal); Z72.0 Tobacco use ==

== ENCOUNTER 2020-06-18 14:00 | Outpatient (RCR) | payer MEDICAID ==
[~2020-06-18 14:00] MED LIST changes: +BUPR-69; -BUPR50TA
== END 2020-06-20 ==
LOC: M OUTALCOH 14:00
PROVIDERS: ATTEND Psychiatry & Neurology Addiction Medicine
DX: F11.20 Opioid dependence, uncomplicated (principal); F10.20 Alcohol dependence, uncomplicated; F12.20 Cannabis dependence, uncomplicated; Z72.0 Tobacco use

== ENCOUNTER 2020-07-16 15:00 | Outpatient (RCR) | payer MEDICAID | END 2020-07-21 | LOC: M OUTALCOH 15:00 | PROVIDERS: ATTEND Psychiatry & Neurology Addiction Medicine | DX: F12.20 Cannabis dependence, uncomplicated (principal); Z72.0 Tobacco use ==

== ENCOUNTER → 2020-08-20 | Outpatient (RCR) | payer MEDICAID | LOC: M OUTALCOH 07-23 13:43 | PROVIDERS: ATTEND Psychiatry & Neurology Addiction Medicine | DX: F12.20 Cannabis dependence, uncomplicated (principal) ==

== ENCOUNTER 2020-09-17 13:30 | Outpatient (RCR) | payer MEDICAID | END 2020-09-20 | LOC: M OUTALCOH 13:30 | PROVIDERS: ATTEND Psychiatry & Neurology Addiction Medicine | DX: F12.20 Cannabis dependence, uncomplicated (principal); Z72.0 Tobacco use ==

== ENCOUNTER 2020-10-15 13:00 | Outpatient (RCR) | payer MEDICAID | END 2020-10-20 | LOC: M OUTALCOH 13:00 | PROVIDERS: ATTEND Psychiatry & Neurology Addiction Medicine | DX: F12.20 Cannabis dependence, uncomplicated (principal); Z72.0 Tobacco use ==

== ENCOUNTER 2020-11-19 14:39 | Outpatient (RCR) | payer MEDICAID | END 2020-11-20 | LOC: M OUTALCOH 14:39 | PROVIDERS: ATTEND Psychiatry & Neurology Addiction Medicine | DX: F12.20 Cannabis dependence, uncomplicated (principal); Z72.0 Tobacco use ==

== ENCOUNTER 2020-12-17 11:18 | Outpatient (RCR) | payer MEDICAID ==
[~2020-12-17 11:18] MED LIST changes: +GABA-282; -GABA-843
== END 2020-12-21 ==
LOC: M OUTALCOH 11:18
PROVIDERS: ATTEND Psychiatry & Neurology Addiction Medicine
DX: F11.20 Opioid dependence, uncomplicated (principal); F10.20 Alcohol dependence, uncomplicated; F13.10 Sedative, hypnotic or anxiolytic abuse, uncomplicated; F17.200 Nicotine dependence, unspecified, uncomplicated; Z72.0 Tobacco use

== ENCOUNTER 2021-01-14 14:39 | Outpatient (RCR) | payer MEDICAID | END 2021-01-18 | LOC: M OUTALCOH 14:39 | PROVIDERS: ATTEND Psychiatry & Neurology Psychiatry | DX: F12.20 Cannabis dependence, uncomplicated (principal); Z72.0 Tobacco use ==

== ENCOUNTER → 2021-02-18 | Outpatient (RCR) | payer MEDICAID | LOC: M OUTALCOH 01-21 15:00 | PROVIDERS: ATTEND Psychiatry & Neurology Psychiatry | DX: F11.20 Opioid dependence, uncomplicated (principal); F10.20 Alcohol dependence, uncomplicated; F13.10 Sedative, hypnotic or anxiolytic abuse, uncomplicated; F17.200 Nicotine dependence, unspecified, uncomplicated ==

== ENCOUNTER → 2021-03-17 | Outpatient (REF) | payer MEDICAID | LOC: M LAB REF 16:25 | PROVIDERS: ATTEND Physician Assistant | DX: J02.9 Acute pharyngitis, unspecified (principal) ==

== ENCOUNTER 2021-03-18 15:00 | Outpatient (RCR) | payer MEDICAID | END 2021-03-20 | LOC: M OUTALCOH 15:00 | PROVIDERS: ATTEND Psychiatry & Neurology Psychiatry | DX: F11.20 Opioid dependence, uncomplicated (principal); F10.20 Alcohol dependence, uncomplicated; F12.20 Cannabis dependence, uncomplicated; Z72.0 Tobacco use ==

== ENCOUNTER 2022-06-15 12:44 | Day surgery (SDC) | payer MEDICAID, OTHER ==
[~2022-06-15] VITALS: Ht 157.5 cm; Wt 71.1 kg
[2022-06-15] MEDS ORDERED: SUBO12MI SL (13:02)
[2022-06-15] MEDS ORDERED: IBUP1TAB6 PO (13:33)
[2022-06-15 13:49] LABS: BASO % 0.2 % (0.0-1.0); EOS % 0.2 % (0.0-3.0); HEMATOCRIT 35.7 % (36.0-47.0); HEMOGLOBIN 11.2 g/dl (12.0-15.5); LYMPH # 1.1 10^3/uL (1.5-5.0); LYMPH % 11.1 % (24.0-44.0); MEAN CORPUSCULAR HEMOGLOBIN 26.9 pg (27.0-33.0); MEAN CORPUSCULAR HGB CONC 31.4 g/dl (32.0-36.5); MEAN CORPUSCULAR VOLUME 85.6 fl (80.0-96.0); MONO # 0.5 10^3/uL (0.0-0.8); NEUTROPHILS # 7.9 10^3/uL (1.5-8.5); NEUTROPHILS % 83.1 % (36.0-66.0); PLATELET COUNT, AUTOMATED 277 10^3/uL (150-450); RED BLOOD COUNT 4.17 10^6/uL (4.00-5.40); WHITE BLOOD COUNT 9.6 10^3/uL (4.0-10.0)
[2022-06-15 14:08] LABS: CK-MB VALUE MASS < 1.0 NG/ML (<3.6); CPK CREATINE PHOSPHOKINASE 46 U/L (26-192); MB/CK RELATIVE INDEX 2.17 (< OR =4)
[2022-06-15 14:15] LABS: BLOOD UREA NITROGEN 6 MG/DL (7-18); CALCIUM LEVEL 9.1 MG/DL (8.5-10.1); CARBON DIOXIDE LEVEL 25 MEQ/L (21-32); CHLORIDE LEVEL 110 MEQ/L (98-107); CREATININE FOR GFR 0.57 MG/DL (0.55-1.30); FREE T4 1.66 NG/DL (0.76-1.46); GLOMERULAR FILTRATION RATE > 60.0 (>60); GLUCOSE, FASTING 93 MG/DL (70-100); MAGNESIUM LEVEL 1.8 MG/DL (1.8-2.4); SODIUM LEVEL 143 MEQ/L (136-145); THYROID STIMULATING HORMONE 0.082 uIU/ML (0.358-3.740)
[2022-06-15 14:30] LABS: RSV AMPLIFICATION NEGATIVE (NEGATIVE)
[2022-06-15] MEDS ORDERED: HOME MED LIST COMPLETE! XX SCH (17:20)
[2022-06-15] MEDS ORDERED: propofoL 200 MG/20 ML VIAL As Ordered ONE (19:15)
[2022-06-15] MEDS ORDERED: KETOROLAC 60MG 2ML VIAL As Ordered ONE (19:15)
[2022-06-15] MEDS ORDERED: MIDAZOLAM INJ 2MG/2ML VIAL (J2250 PER 1MG) As Ordered ONE ×2 (19:15→20:24)
[2022-06-15] MEDS ORDERED: LIDOCAINE 2% 100MG/5ML SDV (FOR ANES.) As Ordered ONE (19:15)
[2022-06-15] MEDS ORDERED: fentaNYL 100 MCG/2 ML INJECTION As Ordered ONE (19:16)
[2022-06-15] MEDS ORDERED: BACITRACIN OINTMENT 30GM TUBE As Ordered ONE (19:16)
[2022-06-15] MEDS ORDERED: LIDOCAINE 1% SDV 30ML VIAL As Ordered ONE (19:16)
[2022-06-15] MEDS ORDERED: ISOVUE-300 61% 50ML VIAL As Ordered ONE (19:17)
[2022-06-15] MEDS ORDERED: AMIODARONE HCL 150 MG/100 ML PREMIXED BAG (NEXTERONE) (J0282 PER 30MG) As Ordered ONE (19:17)
[2022-06-15] MEDS ORDERED: ceFAZolin 2 GM/D5W 50 ML IV BAG (J0690 PER 500MG) As Ordered ONE (19:39)
[2022-06-15] MEDS ORDERED: oxyCODONE 5MG TAB PO PRN (20:35)
[2022-06-15] MEDS ORDERED: ONDANSETRON 4MG 2ML VIAL IV PRN (20:35)
[2022-06-15] MEDS ORDERED: LR 1,000 ML IV SCH (20:35)
[2022-06-15] MEDS ORDERED: ACETAMINOPHEN TAB 650MG DOSE (2X325MG) PO PRN (20:40)
[2022-06-15] MEDS: fentaNYL 100 MCG/2 ML INJECTION IV PRN ×3 (20:51→21:05)
[2022-06-15] MEDS: MORPHINE 2 MG/ML 1ML VIAL IV PRN ×5 (21:10→21:34)
[2022-06-15 21:45] VITALS: BP 128/66
[2022-06-15] MEDS: traMADol 50 MG TAB PO PRN (23:53)
[2022-06-16] VITALS: BP 126/60
[2022-06-16] MEDS ORDERED: ONDANSETRON 4MG 2ML VIAL IV ONE
[2022-06-16 04:00] VITALS: BP 112/66
[2022-06-16] MEDS: ceFAZolin SOD 1 GM in D5W MINI-BAG PLUS 50 ML IV SCH ×2 (04:54→11:51)
[2022-06-16] MEDS: traMADol 50 MG TAB PO PRN ×2 (05:01→11:56)
[2022-06-16 08:00] VITALS: BP 115/67
[2022-06-16 12:00] VITALS: BP 111/57
[2022-06-16 16:00] VITALS: BP 111/63
== END 2022-06-16 18:10 | disposition home or self-care (01) ==
LOC: M ED 12:44 → M SDC 17:53 → ENRESERV 20:46 → M PCU 21:49 → M SDC 06-16 18:10
PROVIDERS: ATTEND Internal Medicine Cardiovascular Disease
DX: I44.2 Atrioventricular block, complete (principal); R55 Syncope and collapse; R94.31 Abnormal electrocardiogram [ECG] [EKG]; F10.11 Alcohol abuse, in remission; F19.11 Other psychoactive substance abuse, in remission; K76.9 Liver disease, unspecified; F17.210 Nicotine dependence, cigarettes, uncomplicated
CPT/HCPCS: 33208; 71045; 71046; 76000; 80048; 82550; 82553; 83735; 84439; 84443; 84484; 85025; 87631; 93005; 93041; 94760; 96365; 96375; 96376; 99285; C1785; C1898; J0690; J1885; J2250; J2270; J2405; J3010

== ENCOUNTER → 2023-03-01 | Outpatient (CLI) | payer OTHER ==
[~2023-03-01] MED LIST changes: +IBUP1TAB6 PO; +SUBO12MI SL
== END ==
LOC: M SOG 07:57
PROVIDERS: ATTEND Physician Assistant
DX: G56.03 Carpal tunnel syndrome, bilateral upper limbs (principal); Z53.8 Procedure and treatment not carried out for other reasons

== ENCOUNTER 2023-04-24 06:03 | Emergency (ER) | payer OTHER ==
[2023-04-24] MEDS ORDERED: AMOX875T2 PO (07:04)
[2023-04-24] MEDS ORDERED: KETOROLAC 60MG 2ML VIAL IM ONE (07:05)
[2023-04-24 07:16] VITALS: BP 108/50; TEMP 97.8; O2SAT 98
== END 2023-04-24 07:28 | disposition home or self-care (01) ==
LOC: M ED 06:03
DX: K08.89 Other specified disorders of teeth and supporting structures (principal); Z95.0 Presence of cardiac pacemaker; F17.200 Nicotine dependence, unspecified, uncomplicated
CPT/HCPCS: 96372; 99283; J1885

== ENCOUNTER 2023-09-03 15:16 | Emergency (ER) | payer OTHER ==
[~2023-09-03] VITALS: Ht 157.5 cm; Wt 70.4 kg
[~2023-09-03 15:16] MED LIST changes: +AMOX875T2 PO
[2023-09-03 17:06] LABS: BASO % 0.6 % (0.0-1.0); EOS # 0.1 10^3/uL (0.0-0.5); EOS % 0.9 % (0.0-3.0); HEMATOCRIT 40.1 % (36.0-47.0); HEMOGLOBIN 13.3 g/dl (12.0-15.5); LYMPH # 1.6 10^3/uL (1.5-5.0); LYMPH % 24.1 % (24.0-44.0); MEAN CORPUSCULAR HEMOGLOBIN 28.5 pg (27.0-33.0); MEAN CORPUSCULAR HGB CONC 33.2 g/dl (32.0-36.5); MEAN CORPUSCULAR VOLUME 85.9 fl (80.0-96.0); MONO # 0.4 10^3/uL (0.0-0.8); NEUTROPHILS # 4.6 10^3/uL (1.5-8.5); NEUTROPHILS % 68.3 % (36.0-66.0); PLATELET COUNT, AUTOMATED 202 10^3/uL (150-450); RED BLOOD COUNT 4.67 10^6/uL (4.00-5.40); WHITE BLOOD COUNT 6.7 10^3/uL (4.0-10.0)
[2023-09-03 17:30] LABS: BLOOD UREA NITROGEN 7 MG/DL (9-23); CALCIUM LEVEL 8.9 MG/DL (8.5-10.1); CARBON DIOXIDE LEVEL 27 MMOL/L (20-31); CHLORIDE LEVEL 108 MMOL/L (98-107); CK-MB VALUE MASS < 1.0 NG/ML (<3.6); CREATININE FOR GFR 0.61 MG/DL (0.55-1.30); GLOMERULAR FILTRATION RATE > 60.0 (>60); GLUCOSE, FASTING 91 MG/DL (60-100); MAGNESIUM LEVEL 1.8 MG/DL (1.8-2.4); SODIUM LEVEL 139 MMOL/L (136-145)
[2023-09-03 17:32] LABS: THYROID STIMULATING HORMONE 0.935 uIU/ML (0.55-4.78)
[2023-09-03 17:33] LABS: CPK CREATINE PHOSPHOKINASE 147 U/L (34-145); FREE T4 1.11 NG/DL (0.89-1.76); MB/CK RELATIVE INDEX 0.68 (< OR =4)
[2023-09-03] MEDS ORDERED: ATEN25TA PO (18:12)
[2023-09-03 18:15] VITALS: BP 118/56
[2023-09-03] MEDS ORDERED: atenoloL 25 MG TAB PO ONE (18:15)
[2023-09-03 18:21] VITALS: BP 118/80; TEMP 97.5; O2SAT 99
== END 2023-09-03 18:44 | disposition home or self-care (01) ==
LOC: M ED 15:16
DX: I47.9 Paroxysmal tachycardia, unspecified (principal); R00.2 Palpitations; F17.200 Nicotine dependence, unspecified, uncomplicated; F19.10 Other psychoactive substance abuse, uncomplicated